=== PATIENT | male | born 1955 | race Caucasian/White ===

== ENCOUNTER 2016-07-23 06:25 | Day surgery (SDC) | payer BC ==
[~2016-07-23 06:25] MED LIST: Lactated Ringers 1,000 ML IV SCH; ceFAZolin 2 GM in Premix Bag 1 BAG IV SCH
--- NOTE | 2016-07-23 07:12 | PCM.PREANE ---
Preanesthetic Assessment - Anesthesia/Transfusion/Family Hx Anesthesia History: Prior Anesthesia Without Reaction Other Type of Anesthesia Reaction Comment: Only time ill, was as child had ' ether' Family History of Anesthesia Reaction: No Transfusion History: No Prior Transfusion(s) Additional History: recent back / hip spasms treatment with toradol and soma started yest - Review of Systems General: No Symptoms Pulmonary: No Symptoms Cardiovascular: No Symptoms Gastrointestinal: No symptoms Neurological: No Symptoms Other: Reports: None - Physical Assessment NPO Status Date: 07/22/16 NPO Status Time: 18:00 O2 Sat by Pulse Oximetry: 95 Respiratory Rate: 16 Vital Signs: Last Vital Signs Temp 36.7 C 07/23/16 06:52 Pulse 70 07/23/16 06:52 Resp 16 07/23/16 06:52 BP 139/87 07/23/16 06:52 Pulse Ox 95 07/23/16 06:52 Height: 1.83 m Weight: 115.666 kg ASA Class: 2 Mental Status: Alert & Oriented x3 Airway Class: Mallampati = 2 Dentition: Reports: Normal Dentition Lungs: Clear to auscultation, Normal respiratory effort Cardiovascular: Regular Rate, Regular Rhythm - Lab Values: Laboratory Last Values POC Glucose 116 mg/dL (60-110) H 07/23/16 06:02 - Allergies Allergies/Adverse Reactions: Allergies Allergy/AdvReac Type Severity Reaction Status Date / Time No Known Allergies Allergy Verified 07/21/16 10:10 - Blood Blood Available: No - Anesthesia Plan Pre-Op Medication Ordered: None - Acknowledgements Anesthesia Type Planned: General Anesthesia Pt an Appropriate Candidate for the Planned Anesthesia: Yes Alternatives and Risks of Anesthesia Discussed w Pt/Guardian: Yes Pt/Guardian Understands and Agrees with Anesthesia Plan: Yes Additional Comments: planned overnight admission for iv antibiotics. knee scope is on the knee with TKA last fall (2016) PreAnesthesia Questionnaire HEENT History: Reports: Allergic rhinitis Other HEENT History: Dry mouth Cardiovascular History: Reports: Hypertension Respiratory History: Reports: None Other Respiratory History: Persistent cough...'using Nasal spray twice daily and take Claritan" Gastrointestinal History: Reports: None Genitourinary History: Reports: None Musculoskeletal History: Reports: Arthritis Other Musculoskeletal History: hx: fracturing clavicle Neurological History: Reports: None Psychiatric History: Reports: None Endocrine/Metabolic History: Reports: Diabetes, type II, Obesity/BMI 30+ Hematologic History: Reports: None Immunologic History: Reports: None Oncologic (Cancer) History: Reports: None Dermatologic History: Reports: None Other Dermatologic History: Chronic cracking/chapping of fingers applying lotion to treat these - Infectious Disease History Infectious Disease History: Reports: Chicken pox, Measles, Mumps - Past Surgical History Head Surgeries/Procedures: Reports: None HEENT Surgical History: Reports: Naso-sinus surgery Cardiovascular Surgical History: Reports: None Respiratory Surgical History: Reports: None GI Surgical History: Reports: Colonoscopy, EGD Male Surgical History: Reports: None Endocrine Surgical History: Reports: None Neurological Surgical History: Reports: None Musculoskeletal Surgical History: Reports: Knee replacement Other Musculoskeletal Surgeries/Procedures:: left Oncologic Surgical History: Reports: None Dermatological Surgical History: Reports: None - History Comment History Comment: denies etoh - SUBSTANCE USE Smoking Status *Q: Former Smoker Tobacco Use Within Last Twelve Months: Smokeless Tobacco Other Tobacco Use Within Last Twelve Months: Former chewing tobacco use, QUIT 25 yrs ago Second Hand Smoke Exposure: No Days Per Week of Alcohol Use: 0 Number of Drinks Per Day: 0 Total Drinks Per Week: 0 Recreational Drug Use History: No - HOME MEDS Home Medications: Home Meds Multivitamin [Daily Vitamin] 1 tab PO DAILY 04/17/14 [History] Niacin 500 mg PO DAILY 04/17/14 [History] amLODIPine Besylate [Amlodipine Besylate] 10 mg PO DAILY 04/17/14 [History] Loratadine [Claritin] 1 tab PO DAILY 05/14/15 [History] metFORMIN HCl [Metformin HCl] 1 tab PO BID 01/22/16 [History] Tadalafil [Cialis] 1 tab PO DAILY 02/01/16 [History] Meloxicam [Mobic] 1 tab PO DAILY 04/01/16 [History] Aspirin [Lite Coat Aspirin] 325 mg PO DAILY 07/21/16 [History] Calcium Carbonate [Calcium] 1 tab PO DAILY 07/21/16 [History] Canagliflozin [Invokana] 1 tab PO QAM 07/21/16 [History] Fish Oil/DHA/EPA [Fish Oil 1,200 MG] 1 cap PO DAILY 07/21/16 [History] Fluticasone Propionate [Flonase Allergy Relief] 1 - 2 spray NASBOTH DAILY [History] - CURRENT (IN HOUSE) MEDS Current Meds: Current Medications Acetaminophen/Hydrocodone Bitart (Cyrus 325-5 Mg) 1 - 2 tab PO Q4H PRN PRN Reason: Pain Lactated Ringer's (Ringers, Lactated) 1,000 mls @ 100 mls/hr IV ASDIRECTED [facility] Last Admin: 07/23/16 06:54 Dose: 100 mls/hr Cefazolin Sodium/Dextrose 2 gm (/ Premix) 50 mls @ 100 mls/hr IV ONCALL [facility] Preanesthetic Assessment - ANESTHESIA/TRANSFUSION/FAMILY HX Anesthesia/Transfusion History: No Prior Transfusion(s), Prior Anesthesia Other Type of Anesthesia Reaction Comment: Only time ill, was as child had ' ether' Family History of Anesthesia Reaction: No - PHYSICAL ASSESSMENT O2 Sat by Pulse Oximetry: 95 RR: 16 Vital Signs: Last Vital Signs Temp 36.7 C 07/23/16 06:52 Pulse 70 07/23/16 06:52 Resp 16 07/23/16 06:52 BP 139/87 07/23/16 06:52 Pulse Ox 95 07/23/16 06:52 Height: 1.83 m Weight: 115.666 kg - LAB Values: Laboratory Last Values POC Glucose 116 mg/dL (60-110) H 07/23/16 06:02 - ALLERGIES Allergies/Adverse Reactions: Allergies Allergy/AdvReac Type Severity Reaction Status Date / Time No Known Allergies Allergy Verified 07/21/16 10:10
[2016-07-23] MEDS ORDERED: Lidocaine 2% 5 ML SDV ONE (07:36)
[2016-07-23] MEDS ORDERED: Propofol 200 MG/20 ML SDV ONE (07:36)
[2016-07-23] MEDS ORDERED: Ondansetron 4 MG/2 ML SDV ONE (07:36)
[2016-07-23] MEDS ORDERED: fentaNYL 250 MCG/5 ML SDV ONE (07:37)
[2016-07-23] MEDS ORDERED: Midazolam 1 MG/ML 2 ML SDV ONE (07:37)
[2016-07-23] MEDS ORDERED: Lidocaine 1% 50 ML MDV ONE (07:40)
[2016-07-23] MEDS ORDERED: Acetaminophen/HYDROcodone 325-5 MG Tab PO PRN (08:00)
[2016-07-23] MEDS ORDERED: Ketorolac 30 MG/ML SDV ONE (08:28)
[2016-07-23] MEDS ORDERED: fentaNYL 100 MCG/2 ML SDV IVPUSH PRN (08:30)
[2016-07-23] MEDS ORDERED: HYDROmorphone 2 MG/ML Syringe ONE (08:42)
--- NOTE | 2016-07-23 09:02 | PCM.OPNOTE ---
- General Post-Op/Procedure Note Date of Surgery/Procedure: 07/23/16 Operative Procedure(s): Left knee arthroscopy with limited synovectomy Post-Op Diagnosis: Painful left TKA Anesthesia Technique: General LMA Primary Surgeon: Ruthie CEJA in mLs: 5 Condition: Good Free Text/Narrative:: tt=25 min #[id number]
[2016-07-23] MEDS ORDERED: Morphine 10 MG/ML Syringe IVPUSH PRN (09:08)
[2016-07-23] MEDS ORDERED: Ondansetron 4 MG/2 ML SDV IVPUSH PRN (09:08)
[2016-07-23] MEDS ORDERED: Ketorolac 30 MG/ML SDV IVPUSH PRN (09:08)
[2016-07-23] MEDS ORDERED: diphenhydrAMINE 25 MG Cap PO PRN (09:08)
[2016-07-23] MEDS ORDERED: Lactated Ringers 1,000 ML IV SCH (09:15)
--- NOTE | 2016-07-23 09:55 | PCM.POSTAN ---
POST ANESTHESIA ASSESSMENT - MENTAL STATUS Mental Status: alert, oriented - RESPIRATORY Respiratory Status: respiratory rate WNL, airway patent - CARDIOVASCULAR CV Status: pulse rate WNL, blood pressure stable - GASTROINTESTINAL GI Status: no symptoms - PAIN Pain Score: 0 - POST OP HYDRATION Hydration Status: adequate & stable
[2016-07-23] MEDS: ceFAZolin 1 GM in Premix Bag 1 BAG IV SCH ×2 (11:06→20:11)
[2016-07-23] MEDS: Acetaminophen/HYDROcodone 325-10 MG Tab PO PRN ×2 (11:54→20:16)
--- NOTE | 2016-07-23 15:23 | OR ---
SURGEON: Ruthie Meek MD DATE OF PROCEDURE: 07/23/2016 PREOPERATIVE DIAGNOSIS: Painful left total knee arthroplasty. POSTOPERATIVE DIAGNOSIS: Painful left total knee arthroplasty. PROCEDURE: Left knee arthroscopy with limited synovectomy. DESIGN TECHNOLOGY PROFESSOR: Susan Anders RN. ANESTHESIA: General. ESTIMATED BLOOD LOSS: 5 mL. TOURNIQUET TIME: 25 minutes. COMPLICATIONS: None. DVT PROPHYLAXIS: Not indicated. IMPLANTS USED: None. BRIEF HISTORY: Kole is a 61-year-old male, who previously underwent a left total knee arthroplasty. He continued to complain of mechanical symptoms such as grinding in the knee. He has had intermittent swelling and pain as well. With his continued mechanical symptoms, I recommended that he undergo a diagnostic knee arthroscopy. Risk and goals of procedure were discussed with the patient and were documented preoperatively. He agreed to proceed. DESCRIPTION OF PROCEDURE: The patient was properly identified and brought to the operating room. He was transferred from the OR cart and placed on the operating table in supine position. General anesthesia was administered. After adequate anesthesia was obtained, a well-padded tourniquet was applied to the left lower extremity. The left lower extremity was then examined. He had no significant effusion. He was stable to varus and valgus stressing and had no significant anterior translation. The left lower extremity was then prepped in standard fashion using ChloraPrep solution. It was then sterilely draped. A time-out was performed to ensure correct site and procedure. Preoperative antibiotics were given. The surgical site had been marked preoperatively. A lateral portal arthrotomy was established. Blunt trocar and cannula were introduced into the suprapatellar pouch. Camera, inflow, and outflow were assembled. No significant synovitis was noted in the suprapatellar space. A medial portal was then established and a blunt probe was inserted. The patellofemoral joint was visualized. He did have scar tissue surrounding the patella and this did appear to be causing some impingement with flexion and extension of the knee. The patella appeared to track centrally. Shaver was introduced and portion of the scar tissue surrounding the patella was excised. I did alternate the camera between the medial and lateral portals to allow better access for the shaving of the synovium. I then extended down the lateral gutter. No loose bodies were identified. I then extended down the medial gutter. Again, no loose bodies were identified. There was some scar tissue that appeared to be catching within the joint along the medial aspect. This was resected with the shaver as well. The polyethylene appeared to be intact. The anterior portion of the knee also showed some scar tissue and this was also resected. I then entered the notch. The post was visualized. There was no significant excess tissue in this area and it was left alone. The lateral aspect of the knee also showed significant scar tissue which appeared to be impinging into the joint. The shaver was again introduced to resect this. The knee was completely inspected again following this and I did not appreciate any further evidence of scar tissue impingement. Instruments were then removed from the knee. The portal sites were closed with 3-0 nylon. Lidocaine 1% was injected along the portal tracts. Xeroform gauze was placed over the wound and a bulky dressing was applied. The tourniquet was then deflated. He was awakened from his anesthetic and transferred back to the operating room cart. He was brought to recovery room in stable condition. All needle and sponge counts were correct. SUSHANT / JOY /[id number]
--- NOTE | 2016-07-23 19:09 | PCM48HPAN ---
Post Anesthesia Note - EVALUATION WITHIN 48HRS OF ANESTHETIC Vital Signs in Normal Range: Yes Patient Participated in Evaluation: Yes Respiratory Function Stable: Yes Airway Patent: Yes Cardiovascular Function Stable: Yes Hydration Status Stable: Yes Pain Control Satisfactory: Yes Nausea and Vomiting Control Satisfactory: Yes Mental Status Recovered: Yes
[2016-07-23 19:54] VITALS: BP 111/67
[2016-07-23] MEDS ORDERED: Docusate Sodium 100 MG Cap PO SCH (21:00)
[2016-07-23] MEDS ORDERED: metFORMIN 500 MG Tab PO SCH (21:00)
[2016-07-24] MEDS ORDERED: Aspirin 325 MG Tab PO SCH (09:00)
[2016-07-24] MEDS ORDERED: amLODIPine 5 MG Tab PO SCH (09:00)
== END 2016-07-23 21:52 | disposition home or self-care (01) ==
LOC: MW.SDS 06:25 → MW.MS 06:28 → UNDOADMOB 09:03 → MW.MS 09:03 → UNDODISOB 21:00 → MW.SDS 21:52
PROVIDERS: ATTEND Orthopaedic Surgery
PROC: 0SBB4ZZ Excision of Left Hip Joint, Percutaneous Endoscopic Approach (ICD-10-PCS; principal; 2016-07-23)
DX: T84.84XA Pain due to internal orthopedic prosthetic devices, implants and grafts, initial encounter (principal); I10 Essential (primary) hypertension; M19.90 Unspecified osteoarthritis, unspecified site; E11.9 Type 2 diabetes mellitus without complications; E66.9 Obesity, unspecified; Z87.891 Personal history of nicotine dependence; Z96.652 Presence of left artificial knee joint; Z98.890 Other specified postprocedural states; Z79.82 Long term (current) use of aspirin; Z79.84 Long term (current) use of oral hypoglycemic drugs; Z79.899 Other long term (current) drug therapy
CPT/HCPCS: 29875; 82962; 88304; A9270; J0690; J1170; J1885; J2250; J2405; J3010; J7120; 01400; J2704

== ENCOUNTER → 2016-08-03 | Outpatient (CLI) | payer BC ==
[~2016-08-03] MED LIST changes: +Bupivacaine 0.25% 10 ML SDV INJECT ONE; +Iopamidol 612 MG/ML 50 ML SDV IARTIC ONE; -Lactated Ringers 1,000 ML IV SCH; +Triamcinolone Acetonide 40 MG/ML 1 ML MDV INJECT STA; -ceFAZolin 2 GM in Premix Bag 1 BAG IV SCH
--- NOTE | 2016-08-03 16:17 | CR ---
EXAMINATION: CT-guided left SI joint steroid injection HISTORY: Sacrococcygeal disorder COMPARISON: CT dated 04/01/2016 TECHNIQUE: The procedure, risks, and benefits were discussed with the patient. Written informed cons ent was obtained. The lower back was sterilely prepped and draped. 1% lidocaine was administered for local anesthesia. Using CT guidance a 22-gauge spinal needle was advanced to the left SI joint. The first pass demonstrated difficulty injecting into the SI joint. The needle was moved superiorly óscar roximately 1 cm and retried. The needle passed into the SI joints and a small test dose of contrast was noted within the joint. 1 mL Marcaine and 40 mg of Kenalog was then injected into the SI joints. Patient tolerated the procedure well. There are no immediate complications. IMPRESSION: Excessive CT guided left SI joint steroid injection.
== END ==
LOC: MW.DI 12:39
PROVIDERS: ATTEND Emergency Medicine
DX: M53.3 Sacrococcygeal disorders, not elsewhere classified (principal)
CPT/HCPCS: 27096; J3301; Q9967

== ENCOUNTER 2016-12-27 06:55 | Inpatient (IN) | payer BC ==
[~2016-12-27 06:55] MED LIST changes: +Acetaminophen 500 MG Tab PO SCH; -Bupivacaine 0.25% 10 ML SDV INJECT ONE; +Famotidine 20 MG/2 ML SDV IVPUSH SCH; -Iopamidol 612 MG/ML 50 ML SDV IARTIC ONE; +Ketorolac 30 MG/ML SDV IVPUSH SCH; +Ropivacaine 49.25 ML, Ketorolac 30 MG, EPINEPHrine 0.5 MG, cloNIDine 80 MCG in Sodium C... INJECT ONE; +Scopolamine 1.5 MG Transdermal Patch TRDERM SCH; -Triamcinolone Acetonide 40 MG/ML 1 ML MDV INJECT STA; +ceFAZolin 2 GM in Premix Bag 1 BAG IV SCH; +oxyCODONE ER 20 MG TAB.ER PO SCH
[2016-12-27] MEDS: Lactated Ringers 1,000 ML IV SCH ×3 (07:19→21:59)
[2016-12-27] MEDS ORDERED: fentaNYL 100 MCG/2 ML SDV ONE (07:35)
[2016-12-27] MEDS ORDERED: Propofol 200 MG/20 ML SDV ONE (07:35)
[2016-12-27] MEDS ORDERED: Midazolam 1 MG/ML 2 ML SDV ONE (07:36)
[2016-12-27] MEDS ORDERED: Lidocaine 2% 5 ML SDV ONE (07:36)
[2016-12-27] MEDS ORDERED: diphenhydrAMINE 50 MG/ML SDV ONE (07:39)
[2016-12-27] MEDS ORDERED: Ondansetron 4 MG/2 ML SDV ONE (07:39)
--- NOTE | 2016-12-27 08:09 | PCM.PREANE ---
Preanesthetic Assessment - Anesthesia/Transfusion/Family Hx Anesthesia History: Prior Anesthesia Without Reaction Other Type of Anesthesia Reaction Comment: Only time ill, was as child had ' ether' Family History of Anesthesia Reaction: No Transfusion History: No Prior Transfusion(s) - Review of Systems General: No Symptoms Pulmonary: No Symptoms Cardiovascular: No Symptoms Gastrointestinal: No Symptoms Neurological: No Symptoms Other: Reports: None - Physical Assessment O2 Sat by Pulse Oximetry: 96 Respiratory Rate: 16 Vital Signs: Last Vital Signs Temp 36.2 C 12/27/16 07:11 Pulse 73 12/27/16 07:11 Resp 16 12/27/16 07:11 BP 140/95 H 12/27/16 07:11 Pulse Ox 96 12/27/16 07:11 Height: 1.83 m Weight: 113.398 kg ASA Class: 2 Mental Status: Alert & Oriented x3 Dentition: Reports: Normal Dentition ROM/Head Extension: Full Lungs: Clear to Auscultation, Normal Respiratory Effort Cardiovascular: Regular Rate, Regular Rhythm - Lab Values: Laboratory Last Values POC Glucose 109 mg/dL (60-110) 12/27/16 07:25 - Allergies Allergies/Adverse Reactions: Allergies Allergy/AdvReac Type Severity Reaction Status Date / Time No Known Allergies Allergy Verified 12/21/16 16:31 - Anesthesia Plan Pre-Op Medication Ordered: Other (tylenol, oxycodone, pepcid, toradol , scop) - Acknowledgements Anesthesia Type Planned: Spinal Pt an Appropriate Candidate for the Planned Anesthesia: Yes Alternatives and Risks of Anesthesia Discussed w Pt/Guardian: Yes Pt/Guardian Understands and Agrees with Anesthesia Plan: Yes PreAnesthesia Questionnaire HEENT History: Reports: Allergic Rhinitis Cardiovascular History: Reports: Hypertension Respiratory History: Reports: None Other Respiratory History: Persistent cough...'using Nasal spray twice daily and take Claritan" Gastrointestinal History: Reports: None Genitourinary History: Reports: None Musculoskeletal History: Reports: Arthritis, Fracture Other Musculoskeletal History: hx: fracturing clavicle Neurological History: Reports: None Psychiatric History: Reports: None Endocrine/Metabolic History: Reports: Diabetes, Type II, Obesity/BMI 30+ Hematologic History: Reports: None Immunologic History: Reports: None Oncologic (Cancer) History: Reports: None Dermatologic History: Reports: None Other Dermatologic History: Chronic cracking/chapping of fingers applying lotion to treat these - Infectious Disease History Infectious Disease History: Reports: Chicken Pox, Measles, Mumps - Past Surgical History Head Surgeries/Procedures: Reports: None HEENT Surgical History: Reports: Naso-Sinus Surgery Other HEENT Surgeries/Procedures: Surgery for Stye to eye young child (ether for anesthesia) Cardiovascular Surgical History: Reports: None Respiratory Surgical History: Reports: None GI Surgical History: Reports: Colonoscopy, EGD Other GI Surgeries/Procedures: reports 2 Colonoscopies Male Surgical History: Reports: None Endocrine Surgical History: Reports: None Neurological Surgical History: Reports: None Musculoskeletal Surgical History: Reports: Knee Replacement Other Musculoskeletal Surgeries/Procedures:: left Oncologic Surgical History: Reports: None Dermatological Surgical History: Reports: None - History Comment History Comment: denies etoh - SUBSTANCE USE Smoking Status *Q: Former Smoker Tobacco Use Within Last Twelve Months: No Other Tobacco Use Within Last Twelve Months: Former chewing tobacco use, QUIT 25 yrs ago Second Hand Smoke Exposure: No Days Per Week of Alcohol Use: 0 Number of Drinks Per Day: 0 Total Drinks Per Week: 0 Recreational Drug Use History: No - HOME MEDS Home Medications: Home Meds Multivitamin [Daily Vitamin] 1 tab PO DAILY 04/17/14 [History] Niacin 500 mg PO DAILY 04/17/14 [History] amLODIPine Besylate [Amlodipine Besylate] 10 mg PO DAILY 04/17/14 [History] Loratadine [Claritin] 10 mg PO DAILY 05/14/15 [History] metFORMIN HCl [Metformin HCl] 500 mg PO BID 01/22/16 [History] Tadalafil [Cialis] 1 tab PO DAILY 02/01/16 [History] Meloxicam [Mobic] 15 mg PO DAILY 04/01/16 [History] Aspirin [Lite Coat Aspirin] 325 mg PO DAILY 07/21/16 [History] Calcium Carbonate [Calcium] 600 mg PO DAILY 07/21/16 [History] Fish Oil/DHA/EPA [Fish Oil 1,200 MG] 1,200 mg PO DAILY 07/21/16 [History] Fluticasone Propionate [Flonase Allergy Relief] 1 - 2 spray NASBOTH DAILY [History] - CURRENT (IN HOUSE) MEDS Current Meds: Current Medications Acetaminophen (Tylenol Extra Strength) 1,000 mg PO ONARRIVE [facility] Last Admin: 12/27/16 07:32 Dose: 1,000 mg Famotidine (Pepcid) 40 mg IVPUSH ONARRIVE [facility] Last Admin: 12/27/16 07:30 Dose: 40 mg Lactated Ringer's (Ringers, Lactated) 1,000 mls @ 100 mls/hr IV ASDIRECTED [facility] Last Admin: 12/27/16 07:19 Dose: 100 mls/hr Cefazolin Sodium/Dextrose 2 gm (/ Premix) 50 mls @ 100 mls/hr IV ONCALL [facility] Ketorolac Tromethamine (Toradol) 30 mg IVPUSH ONARRIVE [facility] Last Admin: 12/27/16 07:33 Dose: 30 mg Oxycodone HCl (Oxycontin) 20 mg PO ONARRIVE [facility] Last Admin: 12/27/16 07:31 Dose: 20 mg Scopolamine (Transderm-Scop) 1.5 mg TRDERM ONARRIVE [facility] Last Admin: 12/27/16 07:31 Dose: 1.5 mg Tranexamic Acid (Cyklokapron) 4,000 mg IV SEECOMMENT [facility] Discontinued Medications Diphenhydramine HCl (Benadryl) Confirm Administered Dose 50 mg .ROUTE .STK-MED ONE Stop: 12/27/16 07:40 Fentanyl (Sublimaze) Confirm Administered Dose 100 mcg .ROUTE .STK-MED ONE Stop: 12/27/16 07:36 Ropivacaine 49.25 ml/Ketorolac Tromethamine 30 mg/Epinephrine HCl 0.5 mg/ Clonidine HCl 80 mcg/ Sodium Chloride 100 mls @ 50 mls/min INJECT ONETIME ONE Stop: 12/27/16 06:01 Lidocaine (Xylocaine-Mpf 2%) Confirm Administered Dose 5 ml .ROUTE .STK-MED ONE Stop: 12/27/16 07:37 Midazolam HCl (Versed 1 Mg/Ml) Confirm Administered Dose 2 mg .ROUTE .STK-MED ONE Stop: 12/27/16 07:37 Ondansetron HCl (Zofran) Confirm Administered Dose 4 mg .ROUTE .STK-MED ONE Stop: 12/27/16 07:40 Propofol (Diprivan 20 Ml) Confirm Administered Dose 600 mg .ROUTE .STK-MED ONE Stop: 12/27/16 07:36 Tranexamic Acid (Cyklokapron) Confirm Administered Dose 4,000 mg .ROUTE .STK- MED ONE Stop: 12/27/16 07:26
[2016-12-27] MEDS ORDERED: Phenylephrine/Normal Saline 100 MCG/ML 10 ML Syringe ONE (08:56)
[2016-12-27] MEDS ORDERED: ePHEDrine 50 MG/ML SDV ONE (09:14)
[2016-12-27] MEDS ORDERED: fentaNYL 100 MCG/2 ML SDV IVPUSH PRN (09:53)
[2016-12-27] MEDS ORDERED: Ondansetron 4 MG/2 ML SDV IV PRN (10:13)
[2016-12-27] MEDS ORDERED: Bisacodyl 10 MG Supp RECTAL PRN (10:14)
[2016-12-27] MEDS ORDERED: diphenhydrAMINE 25 MG Cap PO PRN (10:14)
[2016-12-27] MEDS ORDERED: oxyCODONE 5 MG Tab PO PRN (10:14)
[2016-12-27] MEDS ORDERED: Morphine 10 MG/ML Syringe IVPUSH PRN (10:14)
[2016-12-27] MEDS ORDERED: Aluminum Hydroxide/Magnesium Hydroxide/Simethicone Susp 30 ML Cup PO PRN (10:14)
--- NOTE | 2016-12-27 10:48 | PCM.OPNOTE ---
- General Post-Op/Procedure Note Date of Surgery/Procedure: 12/27/16 Operative Procedure(s): Revision left TKA (poly exchange only) Anesthesia Technique: Moderate Sedation, Spinal Primary Surgeon: Ruthie Meek Administrator: Herb Hollins in mLs: 50 Condition: Good Free Text/Narrative:: tt=38 min #[id number]
--- NOTE | 2016-12-27 11:10 | PCM.POSTAN ---
POST ANESTHESIA ASSESSMENT - MENTAL STATUS Mental Status: Alert, Oriented - RESPIRATORY Respiratory Status: Respiratory Rate WNL, Airway Patent, O2 Saturation Stable - CARDIOVASCULAR CV Status: Pulse Rate WNL, Blood Pressure Stable - GASTROINTESTINAL GI Status: No Symptoms - PAIN Pain Score: 0 (spinal still intact) - POST OP HYDRATION Hydration Status: Adequate & Stable
[2016-12-27] MEDS: Ketorolac 30 MG/ML SDV IVPUSH SCH ×2 (11:35→18:11)
[2016-12-27] MEDS ORDERED: Acetaminophen 500 MG Tab PO SCH (12:00)
--- NOTE | 2016-12-27 13:59 | OR ---
SURGEON: Ruthie Meek MD DATE OF PROCEDURE: 12/27/2016 PREOPERATIVE DIAGNOSIS: Painful left total knee arthroplasty. POSTOPERATIVE DIAGNOSIS: Painful left total knee arthroplasty. PROCEDURE: Revision left total knee arthroplasty (polyethylene exchange only). IT PROGRAMMER: Herb Hollins PA-C. ANESTHESIA: Spinal with sedation. ESTIMATED BLOOD LOSS: 50 mL. TOURNIQUET TIME: 38 minutes. COMPLICATIONS: None. DVT PROPHYLAXIS: PAS boot and BRANT hose to the nonoperative leg. IMPLANTS USED: Denis Persona, 11 mm all-polyethylene articular surface. BRIEF HISTORY: Kole is a 61-year-old male, who previously underwent a left total knee arthroplasty approximately 1 year ago. He is continued to be bothered by persistent pain in the knee. He did have inflammatory labs done as well as a knee aspirate with synovial studies, which did not show any sign of infection. Due to his continued pain, I recommended that he undergo a revision left total knee arthroplasty. The risks and goals of procedure were discussed with the patient and were documented preoperatively. He agreed to proceed. DESCRIPTION OF PROCEDURE: The patient was properly identified and brought to the operating room. He was transferred from the OR cart and placed on the operating table in a supine position. Spinal anesthesia was administered. After adequate anesthesia was obtained, a well-padded tourniquet was applied to the left lower extremity. The left lower extremity was then prepped in standard fashion using ChloraPrep solution. It was then sterilely draped. A time-out was performed to ensure correct site and procedure. Preoperative antibiotics were held. The surgical site had been marked preoperatively. An Esmarch was used to exsanguinate the left lower extremity and the tourniquet was inflated to 250 mmHg. An incision was made over the site of the previous incision. The subcutaneous tissues were incised. A medial parapatellar approach to the knee was then made. He had quite a bit of scar tissue along the medial and lateral gutter which was resected. A partial medial release was performed to improve visualization. He did have abundant scar tissue around the patellofemoral joint, which was also excised. The polyethylene was then removed without difficulty. It did not show any signs of abnormal wear. A portion of soft tissue from the posterior aspect of the knee was obtained and was sent for pathologic evaluation. Pathology report showed a less than 1 WBCs per high-powered field. We elected to proceed with the surgery. The femoral and tibial components were then extensively studied. I did not appreciate any sign of loosening. The scar tissue was excised from the medial and lateral gutters. A [address] lab technician was then used to irrigate 3 L of normal saline through the wound. The posterior capsule was injected with our standard mixture of ropivacaine, Toradol, clonidine, and epinephrine. The tourniquet was then deflated. No excess bleeding was noted. We trialed an 11 mm polyethylene, which seemed to provide good stability. His previous polyethylene was a size 10. I elected to proceed with the 11. This was placed without difficulty and locked into place. He had good stability in the medial and lateral and anterior-posterior planes. The wound was then irrigated with tranexamic acid. The fascial layer was closed with #1 Vicryl. The subcutaneous tissues were closed with 2-0 Vicryl and the skin was closed with glenn. Xeroform gauze was placed over the wound and a bulky dressing was applied. He was awakened from his anesthetic and transferred back to the operating room cart. He was brought to recovery room in stable condition. All needle and sponge counts were correct. SUSHANT / JOY /[id number]
[2016-12-27] MEDS: Acetaminophen/HYDROcodone 325-10 MG Tab PO PRN (14:31)
[2016-12-27] MEDS: Morphine 10 MG/ML Syringe IVPUSH PRN ×2 (15:46→19:25)
[2016-12-27] MEDS: metFORMIN 500 MG Tab.ER PO SCH (16:58)
[2016-12-27] MEDS ORDERED: ceFAZolin 2 GM in Premix Bag 1 BAG IV SCH (17:00)
[2016-12-27] MEDS: Docusate Sodium 100 MG Cap PO SCH (20:59)
[2016-12-27] MEDS ORDERED: oxyCODONE ER 20 MG TAB.ER PO SCH (21:00)
[2016-12-28] MEDS: Ketorolac 30 MG/ML SDV IVPUSH SCH ×2 (00:41→05:46)
[2016-12-28] MEDS ORDERED: ceFAZolin 2 GM in Premix Bag 1 BAG IV SCH ×4 (01:00)
[2016-12-28] MEDS: Morphine 10 MG/ML Syringe IVPUSH PRN (04:06)
[2016-12-28] MEDS ORDERED: Sodium Chloride 0.9% 10 ML Syringe FLUSH PRN (08:06)
[2016-12-28] MEDS ORDERED: Sodium Chloride 0.9% 2.5 ML Syringe FLUSH PRN (08:06)
--- NOTE | 2016-12-28 08:06 | PCM.SURGPN ---
- General Info Date of Service: 12/28/16 Date of Surgery/Procedure: 12/27/16 POD#: 1 Functional Status: Reports: Pain Controlled, Tolerating Diet, Ambulating, Urinating - Review of Systems General: Reports: No Symptoms HEENT: Reports: No Symptoms Pulmonary: Reports: No Symptoms Cardiovascular: Reports: No Symptoms Gastrointestinal: Reports: No Symptoms Genitourinary: Reports: No Symptoms Musculoskeletal: Reports: Leg Pain, Joint Pain, Joint Swelling Neurological: Reports: No Symptoms Psychiatric: Reports: No Symptoms - Patient Data Vitals - Most Recent: Last Vital Signs Temp 36.8 C 12/28/16 04:00 Pulse 58 L 12/28/16 04:00 Resp 16 12/28/16 04:00 BP 140/95 H 12/28/16 07:49 Pulse Ox 92 L 12/28/16 04:00 Weight - Most Recent: 113.398 kg I&O - Last 24 Hours: Intake & Output 12/27/16 12/28/16 12/28/16 22:59 06:59 14:59 Intake Total 1049 690 Output Total 1920 Balance 1049 -1230 Lab Results Last 24 Hrs: Laboratory Results - last 24 hr 12/27/16 12/27/16 12/27/16 Range/Units 07:53 10:37 11:58 Hgb (13.0-17.0) g/dL Hct (38.0-50.0) % POC Glucose 101 104 (60-110) mg/dL Blood Type O POSITIVE Antibody Screen NEGATIVE 12/27/16 12/27/16 12/28/16 Range/Units 16:13 20:58 07:12 Hgb 13.9 (13.0-17.0) g/dL Hct 41.2 (38.0-50.0) % POC Glucose 125 H 111 H (60-110) mg/dL Blood Type Antibody Screen Med Orders - Current: Current Medications Hydrocodone Bitart/Acetaminophen (Mcdonald 325-10 Mg) 1 - 2 tab PO Q4H PRN PRN Reason: Pain Last Admin: 12/27/16 14:31 Dose: 2 tab Al Hydroxide/Mg Hydroxide (Mag-Al Plus) 30 ml PO Q4H PRN PRN Reason: indigestion Amlodipine Besylate (Norvasc) 10 mg PO DAILY [facility] Aspirin (Aspirin) 325 mg PO BID [facility] Bisacodyl (Dulcolax) 10 mg RECTAL DAILY PRN PRN Reason: Constipation Calcium Carbonate/Glycine (Tums) 500 mg PO DAILY [facility] Celecoxib (Celebrex) 200 mg PO DAILY [facility] Diphenhydramine HCl (Benadryl) 25 - 50 mg PO Q6H PRN PRN Reason: Itching Last Admin: 12/27/16 23:47 Dose: 50 mg Docusate Sodium (Colace) 100 mg PO BID [facility] Last Admin: 12/27/16 20:59 Dose: 100 mg Fish Oil (Fish Oil) 1 gm PO DAILY [facility] Lactated Ringer's (Ringers, Lactated) 1,000 mls @ 100 mls/hr IV ASDIRECTED [facility] Last Admin: 12/27/16 21:59 Dose: 100 mls/hr Loratadine (Claritin) 10 mg PO DAILY [facility] Metformin HCl (Glucophage Xr) 500 mg PO BIDMEALS [facility] Last Admin: 12/27/16 16:58 Dose: 500 mg Morphine Sulfate (Morphine) 1 - 3 mg IVPUSH Q3H PRN PRN Reason: Pain Last Admin: 12/28/16 04:06 Dose: 3 mg Niacin (Niacin) 500 mg PO DAILY [facility] Ondansetron HCl (Zofran) 4 mg IV Q6HR PRN PRN Reason: NAUSEA/VOMITING Scopolamine (Transderm-Scop) 1.5 mg TRDERM ONARRIVE [facility] Last Admin: 12/27/16 07:31 Dose: 1.5 mg Discontinued Medications Acetaminophen (Tylenol Extra Strength) 1,000 mg PO ONARRIVE [facility] Last Admin: 12/27/16 07:32 Dose: 1,000 mg Acetaminophen (Tylenol Extra Strength) 1,000 mg PO Q6H [facility] Diphenhydramine HCl (Benadryl) Confirm Administered Dose 50 mg .ROUTE .STK-MED ONE Stop: 12/27/16 07:40 Ephedrine Sulfate (Ephedrine Sulfate) Confirm Administered Dose 50 mg .ROUTE .STK-MED ONE Stop: 12/27/16 09:15 Famotidine (Pepcid) 40 mg IVPUSH ONARRIVE [facility] Last Admin: 12/27/16 07:30 Dose: 40 mg Fentanyl (Sublimaze) Confirm Administered Dose 100 mcg .ROUTE .STK-MED ONE Stop: 12/27/16 07:36 Fentanyl (Sublimaze) 50 mcg IVPUSH .Q5MIN PRN PRN Reason: Pain Stop: 12/31/16 09:54 Ropivacaine 49.25 ml/Ketorolac Tromethamine 30 mg/Epinephrine HCl 0.5 mg/ Clonidine HCl 80 mcg/ Sodium Chloride 100 mls @ 50 mls/min INJECT ONETIME ONE Stop: 12/27/16 06:01 Last Admin: 12/28/16 07:49 Dose: Not Given Cefazolin Sodium/Dextrose 2 gm (/ Premix) 50 mls @ 100 mls/hr IV ONCALL [facility] Cefazolin Sodium/Dextrose 2 gm (/ Premix) 50 mls @ 100 mls/hr IV Q8HR [facility] Stop: 12/27/16 22:29 Last Admin: 12/27/16 16:57 Dose: 100 mls/hr Cefazolin Sodium/Dextrose 2 gm (/ Premix) 50 mls @ 100 mls/hr IV Q8HR [facility] Stop: 12/28/16 09:01 Cefazolin Sodium/Dextrose 2 gm (/ Premix) 50 mls @ 100 mls/hr IV Q8H [facility] Stop: 12/28/16 01:29 Last Admin: 12/28/16 00:42 Dose: 100 mls/hr Ketorolac Tromethamine (Toradol) 30 mg IVPUSH ONARRIVE [facility] Last Admin: 12/27/16 07:33 Dose: 30 mg Ketorolac Tromethamine (Toradol) 30 mg IVPUSH Q6H [facility] Stop: 12/28/16 06:01 Last Admin: 12/28/16 05:46 Dose: 30 mg Lidocaine (Xylocaine-Mpf 2%) Confirm Administered Dose 5 ml .ROUTE .STK-MED ONE Stop: 12/27/16 07:37 Midazolam HCl (Versed 1 Mg/Ml) Confirm Administered Dose 2 mg .ROUTE .STK-MED ONE Stop: 12/27/16 07:37 Morphine Sulfate (Morphine) 1 - 3 mg IVPUSH Q3H PRN PRN Reason: Pain Non-Formulary Medication (Tadalafil [Cialis]) 1 tab PO DAILY [facility] Ondansetron HCl (Zofran) Confirm Administered Dose 4 mg .ROUTE .STK-MED ONE Stop: 12/27/16 07:40 Oxycodone HCl (Oxycontin) 20 mg PO ONARRIVE [facility] Last Admin: 12/27/16 07:31 Dose: 20 mg Oxycodone HCl (Oxycodone) 5 - 10 mg PO Q4H PRN PRN Reason: Pain Oxycodone HCl (Oxycontin) 20 mg PO Q12HR [facility] Phenylephrine HCl (Phenylephrine In Ns 100 Mcg/Ml) Confirm Administered Dose 1 mg .ROUTE .STK-MED ONE Stop: 12/27/16 08:57 Propofol (Diprivan 20 Ml) Confirm Administered Dose 600 mg .ROUTE .STK-MED ONE Stop: 12/27/16 07:36 Tranexamic Acid (Cyklokapron) 4,000 mg IV SEECOMMENT [facility] Tranexamic Acid (Cyklokapron) Confirm Administered Dose 4,000 mg .ROUTE .STK- MED ONE Stop: 12/27/16 07:26 - Exam Wound/Incisions: Dressing Dry and Intact General: Alert, Oriented HEENT: Pupils Equal, Pupils Reactive Neck: Trachea Midline Lungs: Normal Respiratory Effort Cardiovascular: Regular Rate Extremities: Other (Right anterior tibialis, extensor hallucis longus and gastrocnemius strength +5/5 bilaterally. Sensation intact. Dorsalis pedis and posterior tibial pulses +2 bilaterally. ) Neurological: No New Focal Deficit Psy/Mental Status: Alert, Normal Affect, Normal Mood - Problem List Review Problem List Initiated/Reviewed/Updated: Yes - My Orders Last 24 Hours: Active Orders 24 hr Category Date Time Status Admission Status [Patient Status] [ADT] Routine ADT 12/27/16 11:45 Active Accu Check [Blood Glucose Check, Bedside] [RC] ONETIME Care 12/27/16 10:30 Active Activity as Tolerated [RC] .Routine Care 12/27/16 10:13 Active Intake and Output [RC] ASDIRECTED Care 12/27/16 10:13 Active Neurovascular Check [RC] Q2HR Care 12/27/16 10:13 Active Notify Provider Vital Signs [RC] ASDIRECTED Care 12/27/16 10:13 Active RT Incentive Spirometry [RC] ASDIRECTED Care 12/27/16 10:13 Active Vital Signs [RC] Q4H Care 12/27/16 10:13 Active PT Evaluation and Treatment [CONS] Routine Cons 12/28/16 08:00 Active HEMOGLOBIN/HEMATOCRIT,HH [HEME] DAILY Lab 12/29/16 07:00 Ordered HEMOGLOBIN/HEMATOCRIT,HH [HEME] DAILY Lab 12/30/16 07:00 Ordered Acetaminophen/HYDROcodone [Mcdonald 325-10 MG] Med 12/27/16 10:23 Active 1 - 2 tab PO Q4H PRN Alum Hydrox/Mag Hydrox/Simeth [Mag-Al Plus] Med 12/27/16 10:14 Active 30 ml PO Q4H PRN Aspirin Med 12/28/16 09:00 Active 325 mg PO BID Bisacodyl [Dulcolax] Med 12/27/16 10:14 Active 10 mg RECTAL DAILY PRN Calcium Carbonate [Tums] Med 12/28/16 09:00 Active 500 mg PO DAILY Celecoxib [CeleBREX] Med 12/28/16 09:00 Active 200 mg PO DAILY Docusate Sodium [Colace] Med 12/27/16 21:00 Active 100 mg PO BID Fish Oil/[place]-3 Fatty Acids [Fish Oil] Med 12/28/16 09:00 Active 1 gm PO DAILY Loratadine [Claritin] Med 12/28/16 09:00 Active 10 mg PO DAILY Morphine Med 12/27/16 15:23 Active 1 - 3 mg IVPUSH Q3H PRN Niacin Med 12/28/16 09:00 Active 500 mg PO DAILY Ondansetron [Zofran] Med 12/27/16 10:13 Active 4 mg IV Q6HR PRN amLODIPine [Norvasc] Med 12/28/16 09:00 Active 10 mg PO DAILY diphenhydrAMINE [Benadryl] Med 12/27/16 10:14 Active 25 - 50 mg PO Q6H PRN metFORMIN [Glucophage XR] Med 12/27/16 17:00 Active 500 mg PO BIDMEALS Ice Therapy [OM.PC] Routine Oth 12/27/16 10:13 Ordered Medication Orders Hydrocodone Bitart/Acetaminophen (Mcdonald 325-10 Mg) 1 - 2 tab PO Q4H PRN PRN Reason: Pain Last Admin: 12/27/16 14:31 Dose: 2 tab Al Hydroxide/Mg Hydroxide (Mag-Al Plus) 30 ml PO Q4H PRN PRN Reason: indigestion Amlodipine Besylate (Norvasc) 10 mg PO DAILY [facility] Aspirin (Aspirin) 325 mg PO BID [facility] Bisacodyl (Dulcolax) 10 mg RECTAL DAILY PRN PRN Reason: Constipation Calcium Carbonate/Glycine (Tums) 500 mg PO DAILY [facility] Celecoxib (Celebrex) 200 mg PO DAILY [facility] Diphenhydramine HCl (Benadryl) 25 - 50 mg PO Q6H PRN PRN Reason: Itching Last Admin: 12/27/16 23:47 Dose: 50 mg Docusate Sodium (Colace) 100 mg PO BID [facility] Last Admin: 12/27/16 20:59 Dose: 100 mg Fish Oil (Fish Oil) 1 gm PO DAILY [facility] Lactated Ringer's (Ringers, Lactated) 1,000 mls @ 100 mls/hr IV ASDIRECTED [facility] Last Admin: 12/27/16 21:59 Dose: 100 mls/hr Infusion: 12/27/16 21:18 Dose: 100 mls/hr Admin: 12/27/16 11:18 Dose: 100 mls/hr Infusion: 12/27/16 11:18 Dose: 100 mls/hr Admin: 12/27/16 07:19 Dose: 100 mls/hr Loratadine (Claritin) 10 mg PO DAILY [facility] Metformin HCl (Glucophage Xr) 500 mg PO BIDMEALS [facility] Last Admin: 12/27/16 16:58 Dose: 500 mg Morphine Sulfate (Morphine) 1 - 3 mg IVPUSH Q3H PRN PRN Reason: Pain Last Admin: 12/28/16 04:06 Dose: 3 mg Admin: 12/27/16 19:25 Dose: 3 mg Admin: 12/27/16 15:46 Dose: 3 mg Niacin (Niacin) 500 mg PO DAILY [facility] Ondansetron HCl (Zofran) 4 mg IV Q6HR PRN PRN Reason: NAUSEA/VOMITING Scopolamine (Transderm-Scop) 1.5 mg TRDERM ONARRIVE [facility] Last Admin: 12/27/16 07:31 Dose: 1.5 mg - Assessment Assessment (Free Text/Narrative):: Patient up to chair this AM. Tolerating diet. Pain well controlled over night. No complaints today. Denies SOB, chest pain, cough or chills. Hgb 13.9. UO 2270 mL. VSS. - Plan Plan (Free Text/Narrative):: D/C estrada and LRs this AM. Encourage PO fluid intake. Continue PO pain management. Physical therapy this AM. Patient DC home this afternoon.
[2016-12-28] MEDS: Docusate Sodium 100 MG Cap PO SCH (08:20)
[2016-12-28] MEDS: Acetaminophen/HYDROcodone 325-10 MG Tab PO PRN (08:20)
[2016-12-28] MEDS: metFORMIN 500 MG Tab.ER PO SCH (08:21)
[2016-12-28 08:28] VITALS: BP 102/55
[2016-12-28] MEDS ORDERED: Fish Oil/Omega-3 Fatty Acids 1 Gm Cap PO SCH (09:00)
[2016-12-28] MEDS ORDERED: Loratadine 10 MG Tab PO SCH (09:00)
[2016-12-28] MEDS ORDERED: Celecoxib 100 MG Cap PO SCH (09:00)
[2016-12-28] MEDS ORDERED: Calcium Carbonate 500 MG Tab.Chew PO SCH (09:00)
[2016-12-28] MEDS ORDERED: Aspirin 325 MG Tab PO SCH (09:00)
[2016-12-28] MEDS ORDERED: TADALAFIL PO SCH (09:00)
[2016-12-28] MEDS ORDERED: amLODIPine 5 MG Tab PO SCH (09:00)
[2016-12-28] MEDS ORDERED: Niacin 500 MG Tab PO SCH (09:00)
--- NOTE | 2016-12-28 13:32 | PCM.SN ---
- Free Text/Narrative Note: Discharge summary Dressing changed prior to discharge. See discharge plan for complete list of discharge medications and instructions. Dictation #: [id number]
--- NOTE | 2016-12-29 01:52 | DISCH ---
DATE OF DISCHARGE: 12/28/2016 PRIMARY CARE PHYSICIAN: Willard Witt M.D. ADMITTING DIAGNOSIS: Painful left total knee arthroplasty. OTHER MEDICAL DIAGNOSES: 1. Hypertension. 2. Erectile dysfunction. 3. Dyslipidemia. 4. Seasonal allergies. 5. Diabetes mellitus type 2. DISCHARGE DIAGNOSES: 1. Status post right total knee arthroplasty. 2. Hypertension. 3. Erectile dysfunction. 4. Dyslipidemia. 5. Seasonal allergies. 6. Diabetes mellitus type 2. BRIEF HISTORY: The patient is a 61-year-old male, who has previously underwent a left total knee arthroplasty approximately one year ago. He is continued to be bothered by persistent pain in the knee. He did have inflammatory labs done as well as knee aspirate with synovial studies, which did not show any signs of infection. Due to his continued pain, surgical intervention was recommended at that time. OPERATION: Left total knee arthroplasty. HOSPITAL COURSE: Pain was controlled via combination of IV and p.o. pain medications. The patient did receive two doses of Ancef postoperatively for 24 hours of antibiotic coverage. The patient was followed by Physical therapy during his hospital stay. Upon discharge, vital signs were stable and he was afebrile. Hemoglobin on day of discharge is 13.9. Aspirin 325 mg, started on postop day 1 for DVT prophylaxis. Pain is currently controlled with oral pain medications only. He is tolerating oral intake and ambulating with wheeled walker. He feels comfortable with discharge home today. DISCHARGE MEDICATIONS: 1. Aspirin 325 mg. 2. [place] 10/325 mg. 3. Celebrex 200 mg. 4. Colace 100 mg. DISCHARGE INSTRUCTIONS: 1. The patient will follow up in the clinic on January 06, 2017. This appointment is made for the patient. 2. Outpatient physical therapy 2 to 3 times per week for 4 to 6 weeks. 3. [facility] to the left knee. 4. BRANT hose to left lower extremity, on in the morning and off in the evening. For complete medication reconciliation and discharge instructions, please refer to the patient's EHR. If the patient has questions or concerns prior to followup, he may call the clinic. BEAN HAMILTON /[id number] RODRÍGUEZ
== END 2016-12-28 12:00 | disposition home or self-care (01) | DRG 302 ==
LOC: MW.MS 06:55
PROVIDERS: ADMIT Orthopaedic Surgery; ATTEND Orthopaedic Surgery
PROC: 0SWD0JZ Revision of Synthetic Substitute in Left Knee Joint, Open Approach (ICD-10-PCS; principal; 2016-12-27)
DX: M25.562 Pain in left knee (principal); I10 Essential (primary) hypertension; E78.5 Hyperlipidemia, unspecified; E11.9 Type 2 diabetes mellitus without complications; N52.9 Male erectile dysfunction, unspecified; J30.2 Other seasonal allergic rhinitis; Z79.899 Other long term (current) drug therapy; Z96.652 Presence of left artificial knee joint
CPT/HCPCS: 01402; 36415; 82962; 85014; 85018; 86850; 86900; 86901; 88304; 88305; 88331; 97110-GP; 97161-GP; A9270-GY; J0171; J0690; J0735; J1200; J1885; J2250; J2270; J2405; J2704; J2795; J3010; J7050; J7120

== ENCOUNTER 2018-07-17 06:20 | Day surgery (SDC) | payer BC ==
[~2018-07-17 06:20] MED LIST changes: -Acetaminophen 500 MG Tab PO SCH; -Famotidine 20 MG/2 ML SDV IVPUSH SCH; -Ketorolac 30 MG/ML SDV IVPUSH SCH; +Lactated Ringers 1,000 ML IV SCH; -Ropivacaine 49.25 ML, Ketorolac 30 MG, EPINEPHrine 0.5 MG, cloNIDine 80 MCG in Sodium C... INJECT ONE; -Scopolamine 1.5 MG Transdermal Patch TRDERM SCH; -ceFAZolin 2 GM in Premix Bag 1 BAG IV SCH; -oxyCODONE ER 20 MG TAB.ER PO SCH
[2018-07-17] MEDS ORDERED: Lidocaine 2% 5 ML SDV ONE (07:30)
[2018-07-17] MEDS ORDERED: Propofol 200 MG/20 ML SDV ONE ×2 (07:31→08:11)
[2018-07-17] MEDS ORDERED: fentaNYL 100 MCG/2 ML SDV ONE (07:31)
[2018-07-17] MEDS ORDERED: Midazolam 1 MG/ML 2 ML SDV ONE (07:34)
--- NOTE | 2018-07-17 07:54 | PCM.PREANE ---
Preanesthetic Assessment - Anesthesia/Transfusion/Family Hx Anesthesia History: Prior Anesthesia Without Reaction Other Type of Anesthesia Reaction Comment: Only time ill, was as child had ' ether' Family History of Anesthesia Reaction: No Transfusion History: No Prior Transfusion(s) - Review of Systems General: No Symptoms Pulmonary: No Symptoms Cardiovascular: No Symptoms Gastrointestinal: No Symptoms Neurological: No Symptoms Other: Reports: None - Physical Assessment NPO Status Date: 07/16/18 O2 Sat by Pulse Oximetry: 95 Respiratory Rate: 16 Vital Signs: Last Vital Signs Temp 97.7 F 07/17/18 06:43 Pulse 82 07/17/18 06:43 Resp 16 07/17/18 06:43 BP 140/94 H 07/17/18 06:43 Pulse Ox 95 07/17/18 06:43 Height: 6 ft Weight: 119.295 kg ASA Class: 2 Mental Status: Alert & Oriented x3 Airway Class: Mallampati = 2 Dentition: Reports: Normal Dentition ROM/Head Extension: Full Lungs: Clear to Auscultation, Normal Respiratory Effort Cardiovascular: Regular Rate, Regular Rhythm - Lab Values: Laboratory Last Values POC Glucose 122 mg/dL (60-110) H 07/17/18 05:55 - Allergies Allergies/Adverse Reactions: Allergies Allergy/AdvReac Type Severity Reaction Status Date / Time acetaminophen [From Tylenol] Allergy Itching Verified 07/11/18 10:06 hydrocodone Allergy Itching Verified 07/11/18 10:06 pravastatin Allergy Other Verified 07/11/18 10:06 - Blood Blood Available: No - Anesthesia Plan Pre-Op Medication Ordered: None - Acknowledgements Anesthesia Type Planned: MAC Pt an Appropriate Candidate for the Planned Anesthesia: Yes Alternatives and Risks of Anesthesia Discussed w Pt/Guardian: Yes Pt/Guardian Understands and Agrees with Anesthesia Plan: Yes Additional Comments: PMH: hld, s/p TKA, DM2, HTN PLAN: mac/tiva PreAnesthesia Questionnaire HEENT History: Reports: Allergic Rhinitis Other HEENT History: Dry mouth Cardiovascular History: Reports: High Cholesterol, Hypertension Respiratory History: Reports: None Other Respiratory History: Persistent cough...'using Nasal spray twice daily and take Claritan" Gastrointestinal History: Reports: GERD Genitourinary History: Reports: Renal Calculus Musculoskeletal History: Reports: Osteoarthritis Other Musculoskeletal History: hx: fracturing clavicle Neurological History: Reports: None Psychiatric History: Reports: Other (See Below) Other Psychiatric History: Claustrophobic Endocrine/Metabolic History: Reports: Obesity/BMI 30+ Hematologic History: Reports: None Immunologic History: Reports: None Oncologic (Cancer) History: Reports: None Dermatologic History: Reports: None Other Dermatologic History: Chronic cracking/chapping of fingers applying lotion to treat these - Infectious Disease History Infectious Disease History: Reports: Chicken Pox, Measles, Mumps - Past Surgical History Head Surgeries/Procedures: Reports: None HEENT Surgical History: Reports: Naso-Sinus Surgery Other HEENT Surgeries/Procedures: Surgery for Stye to eye young child (ether for anesthesia) Cardiovascular Surgical History: Reports: None Respiratory Surgical History: Reports: None GI Surgical History: Reports: Colonoscopy, EGD Other GI Surgeries/Procedures: reports 2 Colonoscopies Male Surgical History: Reports: None Endocrine Surgical History: Reports: None Neurological Surgical History: Reports: None Musculoskeletal Surgical History: Reports: Knee Replacement Other Musculoskeletal Surgeries/Procedures:: left Oncologic Surgical History: Reports: None Dermatological Surgical History: Reports: None - History Comment History Comment: denies etoh - SUBSTANCE USE Smoking Status *Q: Former Smoker Tobacco Use Within Last Twelve Months: No Recreational Drug Use History: No - HOME MEDS Home Medications: Home Meds Multivitamin [Daily Vitamin] 1 tab PO DAILY 04/17/14 [History] Niacin 500 mg PO DAILY 04/17/14 [History] amLODIPine Besylate [Amlodipine Besylate] 10 mg PO DAILY 04/17/14 [History] Loratadine [Claritin] 10 mg PO DAILY 05/14/15 [History] Aspirin [Lite Coat Aspirin] 325 mg PO DAILY 07/21/16 [History] Calcium Carbonate [Calcium] 600 mg PO DAILY 07/21/16 [History] Fish Oil/DHA/EPA [Fish Oil 1,200 MG] 1,200 mg PO DAILY 07/21/16 [History] Fluticasone Propionate [Flonase Allergy Relief] 1 - 2 spray NASBOTH DAILY [History] metFORMIN HCl [Metformin HCl ER] 500 mg PO BIDMEALS 12/27/16 [History] Gluc 2KCl/Chondr/[place] Hy/Hy Ac [Glucosamine & Chondroitin Cap] 30 ml PO DAILY [History] Meloxicam 15 mg PO DAILY 07/11/18 [History] Sildenafil Citrate [Sildenafil] 50 - 100 mg PO ASDIRECTED PRN 07/11/18 [History] - CURRENT (IN HOUSE) MEDS Current Meds: Current Medications Lactated Ringer's (Ringers, Lactated) 1,000 mls @ 125 mls/hr IV ASDIRECTED [facility] Last Admin: 07/17/18 06:49 Dose: 125 mls/hr Discontinued Medications Fentanyl (Sublimaze) Confirm Administered Dose 100 mcg .ROUTE .STK-MED ONE Stop: 07/17/18 07:32 Lidocaine (Xylocaine-Mpf 2%) Confirm Administered Dose 5 ml .ROUTE .STK-MED ONE Stop: 07/17/18 07:31 Midazolam HCl (Versed 1 Mg/Ml) Confirm Administered Dose 2 mg .ROUTE .STK-MED ONE Stop: 07/17/18 07:35 Propofol (Diprivan 20 Ml) Confirm Administered Dose 400 mg .ROUTE .STK-MED ONE Stop: 07/17/18 07:32
--- NOTE | 2018-07-17 08:38 | PCM.OPNOTE ---
- General Post-Op/Procedure Note Date of Surgery/Procedure: 07/17/18 Operative Procedure(s): Esophagogastroduodenoscopy with antral and distal esophageal biopsies. Colonoscopy. Pre Op Diagnosis: Progressive heartburn. Change in bowel habits with Hemoccult positive stool. Post-Op Diagnosis: Moderate acute gastritis. Distal esophagitis. No evidence of colonic neoplasia. Anesthesia Technique: MAC (ASA II) Primary Surgeon: Cuco Argueta [employer] Operator: Betty Sheets Condition: Good Free Text/Narrative:: DICTATION [id number] CPT CODE [id number]
[2018-07-17] MEDS ORDERED: Lactated Ringers 1,000 ML IV SCH (08:45)
--- NOTE | 2018-07-17 09:04 | PCM.POSTAN ---
POST ANESTHESIA ASSESSMENT - MENTAL STATUS Mental Status: Alert, Oriented - RESPIRATORY Respiratory Status: Respiratory Rate WNL, Airway Patent, O2 Saturation Stable - CARDIOVASCULAR CV Status: Pulse Rate WNL, Blood Pressure Stable - GASTROINTESTINAL GI Status: No Symptoms - POST OP HYDRATION Hydration Status: Adequate & Stable
--- NOTE | 2018-07-17 09:04 | PCM48HPAN ---
Post Anesthesia Note - EVALUATION WITHIN 48HRS OF ANESTHETIC Vital Signs in Normal Range: Yes Patient Participated in Evaluation: Yes Respiratory Function Stable: Yes Airway Patent: Yes Cardiovascular Function Stable: Yes Hydration Status Stable: Yes Pain Control Satisfactory: Yes Nausea and Vomiting Control Satisfactory: Yes Mental Status Recovered: Yes Resp Rate: 16
[2018-07-17 09:12] VITALS: BP 116/76
--- NOTE | 2018-07-17 13:16 | OR ---
SURGEON: Cuco Argueta M.D. DATE OF PROCEDURE: 07/17/2018 OPEARTION PERFORMED: Esophagogastroduodenoscopy with biopsy. ANESTHESIA: MAC. ASA CLASSIFICATION: 2. PREOPERATIVE DIAGNOSIS: Progressive heartburn. 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 DESCRIPTION OF PROCEDURE: The patient was taken to the endoscopy room and positioned on the endoscopy table in the left lateral decubitus position. Time-out was called for appropriate identification of the patient and procedure. Monitored anesthesia care was provided. The bite block was placed between the patient's teeth. The gastroscope was inserted through the bite block into the oropharynx and advanced without difficulty through the esophagus and stomach into the duodenum where examination was carried out in a retrograde fashion. The duodenum shows no acute inflammatory changes or ulcerations. Stomach does show [id number] acute gastritis. Antral biopsies were obtained to look for the presence of Helicobacter pylori. The gastroscope was retroflexed to visualize the proximal stomach where again changes suggestive of a moderate acute gastritis were noted. No ulcerations were noted. The gastroscope was then straightened and slowly withdrawn carefully visualizing the greater and lesser curvatures. No polyps were encountered. No ulcers were noted. As the scope was withdrawn through the esophageal hiatus, there does appear to be columnization of the mucosa. Biopsies of the distal esophagus at approximately 39 cm were obtained. Again, my concern is that demonstrates a Bautista's esophagus. The remainder of the proximal esophagus shows no acute inflammatory changes or ulcerations. The vocal cords were visualized as the scope was withdrawn and noted to move symmetrically. The gastroscope was then removed with the patient having tolerated the procedure well. Following colonoscopy, he was taken to recovery room in stable condition. DEB / JOY /[id number]
--- NOTE | 2018-07-17 13:23 | OR ---
SURGEON: Cuco Argueta M.D. DATE OF PROCEDURE: 07/17/2018 OPERATION PERFORMED: Colonoscopy. ANESTHESIA: MAC. ASA CLASSIFICATION: 2. PREOPERATIVE DIAGNOSES: 1. Change in bowel habits. 2. Hemoccult-positive stool. POSTOPERATIVE DIAGNOSIS: No evidence of neoplasia. DESCRIPTION OF PROCEDURE: The patient was maintained in the left lateral decubitus position. Following esophagogastroduodenoscopy, the colonoscope was inserted into the rectum and advanced with minimal difficulty to the cecum where the colonoscope was retroflexed to visualize the ascending colon from below. Cecum was identified by internal landmarks including the appendiceal orifice and external pressure. The cecum, ascending colon, hepatic flexure, transverse colon, splenic flexure, descending colon, sigmoid colon, and rectum were very well visualized. No tumors, polyps, diverticula, or angiodysplastic changes were noted anywhere in the lower gastrointestinal tract. Once the scope was withdrawn to the rectum, it was retroflexed to visualize the anal orifice from above. Again, no tumors or polyps were seen and there were no acute hemorrhoidal changes. The colonoscope was then straightened, the rectum aspirated, and the colonoscope removed. The patient tolerated the procedure well and was taken to recovery room in stable condition. DEB / JOY /[id number]
== END 2018-07-17 09:30 | disposition home or self-care (01) ==
LOC: MW.SDS 06:20
PROVIDERS: ATTEND Surgery
DX: K20.9 Esophagitis, unspecified (principal); K29.01 Acute gastritis with bleeding; K29.51 Unspecified chronic gastritis with bleeding; K21.9 Gastro-esophageal reflux disease without esophagitis; R10.32 Left lower quadrant pain; R19.7 Diarrhea, unspecified; R19.4 Change in bowel habit; I10 Essential (primary) hypertension; E11.9 Type 2 diabetes mellitus without complications; E78.00 Pure hypercholesterolemia, unspecified; M19.90 Unspecified osteoarthritis, unspecified site; M51.36 Other intervertebral disc degeneration, lumbar region; Z88.6 Allergy status to analgesic agent; Z88.5 Allergy status to narcotic agent; Z88.8 Allergy status to other drugs, medicaments and biological substances; Z87.891 Personal history of nicotine dependence; Z79.82 Long term (current) use of aspirin; Z79.51 Long term (current) use of inhaled steroids; Z79.84 Long term (current) use of oral hypoglycemic drugs; Z79.1 Long term (current) use of non-steroidal anti-inflammatories (NSAID); Z79.899 Other long term (current) drug therapy
CPT/HCPCS: 43239; 45378; 82962; J2001; J2250; J2704; J3010; J7120; 88305; 88312

== ENCOUNTER 2020-01-11 09:03 | Day surgery (SDC) | payer BC ==
[~2020-01-11 09:03] MED LIST changes: +Lidocaine 2% 5 ML SDV ONE; +Propofol 200 MG/20 ML SDV ONE; +cefOXitin 2 GM in Premix Bag 1 BAG IV ONE; +fentaNYL 100 MCG/2 ML SDV ONE
--- NOTE | 2020-01-11 09:56 | PCM.PREANE ---
Preanesthetic Assessment - Anesthesia/Transfusion/Family Hx Anesthesia History: Prior Anesthesia Without Reaction Other Type of Anesthesia Reaction Comment: Only time ill, was as child had 'ether' Family History of Anesthesia Reaction: No Transfusion History: No Prior Transfusion(s) - Review of Systems General: No Symptoms Pulmonary: No Symptoms Cardiovascular: No Symptoms Gastrointestinal: No Symptoms Neurological: No Symptoms Other: Reports: None - Physical Assessment NPO Status Date: 01/10/20 Vital Signs: Last Vital Signs Temp 99.5 F 01/11/20 09:25 Pulse 83 01/11/20 09:25 Resp 16 01/11/20 09:25 BP 159/99 H 01/11/20 09:25 Pulse Ox 95 01/11/20 09:25 Height: 6 ft Weight: 121.109 kg ASA Class: 2 Mental Status: Alert & Oriented x3 Airway Class: Mallampati = 3 Dentition: Reports: Normal Dentition ROM/Head Extension: Full Lungs: Clear to Auscultation, Normal Respiratory Effort Cardiovascular: Regular Rate, Regular Rhythm - Allergies Allergies/Adverse Reactions: Allergies Allergy/AdvReac Type Severity Reaction Status Date / Time acetaminophen [From Tylenol] Allergy Itching Verified 01/08/20 11:14 hydrocodone Allergy Itching Verified 01/08/20 11:14 pravastatin Allergy Other Verified 01/08/20 11:14 - Blood Blood Available: No - Anesthesia Plan Pre-Op Medication Ordered: None - Acknowledgements Anesthesia Type Planned: General Anesthesia Pt an Appropriate Candidate for the Planned Anesthesia: Yes Alternatives and Risks of Anesthesia Discussed w Pt/Guardian: Yes Pt/Guardian Understands and Agrees with Anesthesia Plan: Yes PreAnesthesia Questionnaire HEENT History: Reports: Allergic Rhinitis Cardiovascular History: Reports: High Cholesterol, Hypertension Respiratory History: Reports: None Other Respiratory History: Persistent cough...'using Nasal spray twice daily and take Claritan" Gastrointestinal History: Reports: GERD Genitourinary History: Reports: Renal Calculus Musculoskeletal History: Reports: Back Pain, Chronic, Fracture, Osteoarthritis Other Musculoskeletal History: hx: fracturing clavicle Neurological History: Reports: None Psychiatric History: Reports: Other (See Below) Other Psychiatric History: Claustrophobic Endocrine/Metabolic History: Reports: Diabetes, Type II, Obesity/BMI 30+ Hematologic History: Reports: None Immunologic History: Reports: None Oncologic (Cancer) History: Reports: None Dermatologic History: Reports: None Other Dermatologic History: Chronic cracking/chapping of fingers applying lotion to treat these - Infectious Disease History Infectious Disease History: Reports: Chicken Pox, Measles, Mumps - Past Surgical History Head Surgeries/Procedures: Reports: None HEENT Surgical History: Reports: Naso-Sinus Surgery Other HEENT Surgeries/Procedures: Surgery for Stye to eye young child (ether for anesthesia) Cardiovascular Surgical History: Reports: None Respiratory Surgical History: Reports: None GI Surgical History: Reports: Colonoscopy, EGD Other GI Surgeries/Procedures: reports 2 Colonoscopies Male Surgical History: Reports: None Endocrine Surgical History: Reports: None Neurological Surgical History: Reports: None Musculoskeletal Surgical History: Reports: Arthroscopic Knee, Knee Replacement Other Musculoskeletal Surgeries/Procedures:: left TKA, then arthroscopy to "clean up joint" and then revision of TKA Oncologic Surgical History: Reports: None Dermatological Surgical History: Reports: None - History Comment History Comment: denies etoh - SUBSTANCE USE Smoking Status *Q: Former Smoker Tobacco Use Within Last Twelve Months: No Recreational Drug Use History: No - HOME MEDS Home Medications: Home Meds Multivitamin [Daily Vitamin] 1 tab PO DAILY 04/17/14 [History] Niacin 500 mg PO DAILY 04/17/14 [History] amLODIPine Besylate [Amlodipine Besylate] 10 mg PO QAM 04/17/14 [History] Loratadine [Claritin] 10 mg PO DAILY 05/14/15 [History] Aspirin [Lite Coat Aspirin] 325 mg PO DAILY 07/21/16 [History] Calcium Carbonate [Calcium] 600 mg PO DAILY 07/21/16 [History] Fish Oil/DHA/EPA [Fish Oil 1,200 MG] 1,200 mg PO DAILY 07/21/16 [History] Fluticasone Propionate [Flonase Allergy Relief] 1 - 2 spray NASBOTH DAILY 07/21/16 [History] metFORMIN HCl [Metformin HCl ER] 500 mg PO BIDMEALS 12/27/16 [History] Glucosam/Chondr/Collagn/Hyalur [Glucosamine & Chondroitin Cap] 1 cap PO DAILY 07/11/18 [History] Meloxicam 15 mg PO DAILY PRN 07/11/18 [History] Magnesium 200 mg PO DAILY 12/31/19 [History] Turmeric Root Extract [Turmeric] 500 mg PO DAILY 08/24/20 [History] tadalafiL [Tadalafil] 5 mg PO DAILY 12/31/19 [History] - CURRENT (IN HOUSE) MEDS Current Meds: Current Medications Lactated Ringer's (Ringers, Lactated) 1,000 mls @ 125 mls/hr IV ASDIRECTED JESSEE Lactated Ringer's (Ringers, Lactated) 1,000 mls @ 125 mls/hr IV ASDIRECTED JESSEE Discontinued Medications Fentanyl (Sublimaze) Confirm Administered Dose 100 mcg .ROUTE .STK-MED ONE Stop: 01/11/20 07:17 Cefoxitin Sodium 2 gm/ Premix 50 mls @ 100 mls/hr IV ONETIME ONE Stop: 01/09/20 14:05 Lidocaine (Xylocaine-Mpf 2%) Confirm Administered Dose 5 ml .ROUTE .STK-MED ONE Stop: 01/11/20 07:16 Propofol (Diprivan 20 Ml) Confirm Administered Dose 400 mg .ROUTE .STK-MED ONE Stop: 01/11/20 07:16
[2020-01-11] MEDS ORDERED: Midazolam 1 MG/ML 2 ML SDV ONE (10:26)
--- NOTE | 2020-01-11 10:52 | PCM.OPNOTE ---
- General Post-Op/Procedure Note Date of Surgery/Procedure: 01/11/20 Operative Procedure(s): Esophagogastroduodenoscopy with gastric and esophageal biopsies Pre Op Diagnosis: Chronic progressive heartburn with severe reflux esophagitis Post-Op Diagnosis: Moderate chronic gastritis. Distal esophagitis. Anesthesia Technique: MAC (ASA II) Primary Surgeon: Cuco Argueta Condition: Good Free Text/Narrative:: DICTATION [id number] CPT CODE 03810
[2020-01-11] MEDS ORDERED: Lactated Ringers 1,000 ML IV SCH (11:00)
--- NOTE | 2020-01-11 11:17 | PCM.POSTAN ---
POST ANESTHESIA ASSESSMENT - MENTAL STATUS Mental Status: Alert, Oriented - VITAL SIGNS Vital Signs: Last Vital Signs Temp 99.5 F 01/11/20 09:25 Pulse 71 01/11/20 11:12 Resp 12 01/11/20 11:12 BP 129/80 01/11/20 11:12 Pulse Ox 94 L 01/11/20 11:12 - RESPIRATORY Respiratory Status: Respiratory Rate WNL, Airway Patent, O2 Saturation Stable - CARDIOVASCULAR CV Status: Pulse Rate WNL, Blood Pressure Stable - GASTROINTESTINAL GI Status: No Symptoms - PAIN Pain Score: 0 - POST OP HYDRATION Hydration Status: Adequate & Stable
[2020-01-11 11:33] VITALS: BP 121/80; PULSE 70
--- NOTE | 2020-01-11 12:17 | PCM48HPAN ---
Post Anesthesia Note - EVALUATION WITHIN 48HRS OF ANESTHETIC Vital Signs in Normal Range: Yes Patient Participated in Evaluation: Yes Respiratory Function Stable: Yes Airway Patent: Yes Cardiovascular Function Stable: Yes Hydration Status Stable: Yes Pain Control Satisfactory: Yes Nausea and Vomiting Control Satisfactory: Yes Mental Status Recovered: Yes Vital Signs: Last Vital Signs Temp 98.6 F 01/11/20 11:28 Pulse 70 01/11/20 11:28 Resp 15 01/11/20 11:28 BP 121/80 01/11/20 11:28 Pulse Ox 94 L 01/11/20 11:28
--- NOTE | 2020-01-11 13:32 | OR ---
SURGEON: Cuco Argueta M.D. DATE OF PROCEDURE: 01/11/2020 OPERATION PERFORMED: Esophagogastroduodenoscopy with gastric and esophageal biopsies. PRIMARY SURGEON: Cuco Argueta MD ANESTHESIA: MAC. ASA CLASSIFICATION: II. PREOPERATIVE DIAGNOSIS: Progressive heartburn with severe reflux esophagitis. POSTOPERATIVE DIAGNOSES: 1. Moderate chronic gastritis. 2. Distal esophagitis. DESCRIPTION OF PROCEDURE: The patient was taken to the endoscopy room and positioned on the endoscopy table in the supine position. Time-out was called for appropriate identification of the patient and procedure. Monitored anesthesia care was provided. The bite block was placed between the patient's teeth. The gastroscope was then inserted through the bite block into the oropharynx and advanced without difficulty through the esophagus and stomach into the duodenum where examination was now carried out in a retrograde fashion. The duodenum showed no acute inflammatory changes or ulcerations. The stomach did show mild to moderate chronic gastritis. Antral biopsies were obtained to look for the presence of Helicobacter pylori. The gastroscope was then retroflexed to visualize the proximal stomach, which also showed a very significant gastritis and separate biopsies of the proximal stomach were obtained. The GE junction was well defined. However, there were some mild inflammatory changes in the distal esophagus and separate biopsies of this area were obtained. The Z-line is at approximately 42 cm. The mid and proximal esophagus demonstrated no acute inflammatory changes or ulcerations. The vocal cords were visualized as the scope was withdrawn and noted to move symmetrically. The gastroscope was then removed with the patient having tolerated the procedure well. He was taken to recovery room in satisfactory condition. DEB / JOY /[id number]
== END 2020-01-11 11:40 | disposition home or self-care (01) ==
LOC: MW.SDS 09:03
PROVIDERS: ATTEND Surgery
DX: K29.50 Unspecified chronic gastritis without bleeding (principal); K21.0 Gastro-esophageal reflux disease with esophagitis; E78.5 Hyperlipidemia, unspecified; I10 Essential (primary) hypertension; E78.00 Pure hypercholesterolemia, unspecified; E66.9 Obesity, unspecified; E11.9 Type 2 diabetes mellitus without complications; F41.8 Other specified anxiety disorders; Z88.5 Allergy status to narcotic agent; Z88.8 Allergy status to other drugs, medicaments and biological substances; Z79.82 Long term (current) use of aspirin; Z79.899 Other long term (current) drug therapy; Z79.84 Long term (current) use of oral hypoglycemic drugs; Z96.652 Presence of left artificial knee joint; Z72.89 Other problems related to lifestyle; Z68.38 Body mass index [BMI] 38.0-38.9, adult
CPT/HCPCS: 43239; J2001; J2250; J2704; J3010; J7120; 00731; 88305; 88312